=== PATIENT | male | born 1955 | race Caucasian/White ===

== ENCOUNTER 2019-09-04 20:17 | Emergency (ER) | payer OTHER ==
[~2019-09-04] VITALS: Ht 185.4 cm; Wt 108.9 kg
[2019-09-04 20:33] VITALS: Ht 185.4 cm; Wt 108.9 kg
[2019-09-04 21:53] VITALS: BP 134/70
== END 2019-09-04 21:53 | disposition home or self-care (01) ==
LOC: ED 20:17
DX: U07.1 COVID-19 (principal); B34.9 Viral infection, unspecified
CPT/HCPCS: 80201; 87804; U0003-CS